=== PATIENT | female | born 1975 | race Caucasian/White ===

== ENCOUNTER 2017-08-24 20:23 | Emergency (ER) | payer MEDICARE, OTHER ==
[~2017-08-24] VITALS: Ht 165.1 cm; Wt 99.5 kg
[~2017-08-24 20:23] MED LIST: ESCI10TA PO; RISPERDAL PO
[2017-08-24] MEDS ORDERED: TraMADol HCL 50 MG TABLET PO ONE (21:00)
[2017-08-24] MEDS ORDERED: CIPROFLOXACIN HCL 250 MG TABLET PO ONE (21:00)
[2017-08-24 21:27] VITALS: BP 133/80
== END 2017-08-24 21:35 | disposition home or self-care (01) ==
LOC: EMS 20:24
DX: S71.131A Puncture wound without foreign body, right thigh, initial encounter (principal); K03.1 Abrasion of teeth; F17.210 Nicotine dependence, cigarettes, uncomplicated; W54.0XXA Bitten by dog, initial encounter; Y93.01 Activity, walking, marching and hiking; Y92.830 Public park as the place of occurrence of the external cause; Y99.8 Other external cause status
CPT/HCPCS: 99283

== ENCOUNTER 2023-08-15 06:53 | Emergency (ER) | payer MEDICARE, OTHER ==
[~2023-08-15] VITALS: Ht 165.1 cm; Wt 77.3 kg
[~2023-08-15 06:53] MED LIST changes: +ESCI-8 PO; -ESCI10TA PO
[2023-08-15 07:01] VITALS: TEMP 98.4
[2023-08-15] MEDS ORDERED: RISP3TAB35 PO (07:04)
[2023-08-15] MEDS ORDERED: RALT400T PO (07:04)
[2023-08-15] MEDS ORDERED: EMTR1TAB23 PO (07:04)
[2023-08-15] MEDS ORDERED: ESCI20TA37 PO (07:04)
[2023-08-15 07:39] LABS: BASOPHILS % (AUTO) 0.1 % (0.0-2.0); EOSINOPHILS % (AUTO) 0.4 % (1.0-6.0); HEMATOCRIT 34.4 % (36-46); HEMOGLOBIN 11.3 g/dL (12.0-16.0); LYMPHOCYTES % (AUTO) 7.8 % (22.0-44.0); MEAN CORPUSCULAR HEMOGLOBIN 28.4 pg (26.0-34.0); MEAN CORPUSCULAR HGB CONC 32.9 G/dL (31.0-37.0); MEAN CORPUSCULAR VOLUME 86 fL (80-100); MONOCYTES # (AUTO) 0.7 K/uL (0.1-1.0); MONOCYTES % (AUTO) 5.7 % (2.0-9.0); PLATELET COUNT (AUTO) 274 K/uL (150-450); RED BLOOD CELL COUNT(AUTO) 3.98 MIL/uL (4.00-5.20); RED CELL DISTRIBUTION WIDTH 14.3 % (11.5-14.5); WHITE BLOOD COUNT (AUTO) 12.8 K/uL (4.5-11.0)
[2023-08-15] MEDS ORDERED: IOHEXOL 350 MG/ML 100 ML VIAL ONE (07:49)
[2023-08-15] MEDS ORDERED: SODIUM CHLORIDE 0.9% 100 ML ONE (07:49)
[2023-08-15] MEDS: SODIUM CHLORIDE 0.9% 1,000 ML IV ONE (07:52)
[2023-08-15] MEDS: MORPHINE SULFATE 2 MG/ML SYRINGE IVP ONE (07:53)
[2023-08-15] MEDS: FAMOTIDINE 20 MG/2 ML VIAL IVP ONE (07:53)
[2023-08-15] MEDS: ACETAMINOPHEN 500 MG TABLET PO ONE (07:53)
[2023-08-15 07:57] LABS: ANION GAP 8 mmol/L (8-16); CARBON DIOXIDE 27 mmol/L (22-29); CHLORIDE 103 mmol/L (98-107); CREATININE 0.75 mg/dL (0.60-1.30); GLOMERULAR FILTR. RATE CALC > 60 mL/min (>60); GLUCOSE,RANDOM 105 mg/dL (70-110); POTASSIUM 4.1 mmol/L (3.5-5.1); SODIUM SERUM 138 mmol/L (136-145); UREA NITROGEN, BLOOD 10 mg/dL (7-18)
[2023-08-15 08:01] LABS: ALANINE AMINOTRANSFERASE 53 U/L (12-78); ALBUMIN 3.5 g/dL (3.4-5.0); ALKALINE PHOSPHATASE 167 U/L (46-116); ASPARTATE AMINOTRANSFERASE 33 U/L (15-37); BILIRUBIN,TOTAL 0.7 mg/dL (0.1-1.0); LIPASE 35 U/L (16-77); TOTAL PROTEIN, SERUM 8.9 g/dL (6.4-8.2)
[2023-08-15 08:52] LABS: APPEARANCE,URINE CLEAR (CLEAR); BILIRUBIN,URINE NEGATIVE (NEGATIVE); COLOR,URINE LIGHT YELLOW (YELLOW); GLUCOSE, URINE (UA) NEGATIVE (NEGATIVE); KETONES,URINE NEGATIVE (NEGATIVE); LEUKOCYTE ESTERASE ,URINE NEGATIVE (NEGATIVE); NITRATE,URINE NEGATIVE (NEGATIVE); OCCULT BLOOD,URINE TRACE (NEGATIVE); PROTEIN,URINE NEGATIVE (NEGATIVE); SPECIFIC GRAVITIY, URINE 1.026 (1.003-1.030); UROBILINOGEN,URINE <=1.0 mg/dL (<=1.0)
[2023-08-15] MEDS: AMOX TR/POT CLAV 875 MG/125 MG TABLET PO ONE (09:03)
[2023-08-15 09:04] LABS: BACTERIA,URINE None Seen /HPF (None Seen); RBC,URINE 0-2 /HPF (0-2); SQUAMOUS EPITHELIAL CELL,UR Rare /LPF (None Seen); WBC,URINE None Seen /HPF (0-5)
[2023-08-15] MEDS ORDERED: AMOX1TAB16 PO (11:04)
[2023-08-15] MEDS ORDERED: ACET-3385 PO (11:04)
[2023-08-15 11:15] VITALS: BP 120/96; PULSE 90; RESP 16
== END 2023-08-15 11:27 | disposition home or self-care (01) ==
LOC: EMS 06:53
DX: K57.92 Diverticulitis of intestine, part unspecified, without perforation or abscess without bleeding (principal); F41.9 Anxiety disorder, unspecified; F32.A Depression, unspecified; F17.210 Nicotine dependence, cigarettes, uncomplicated; Z91.018 Allergy to other foods
CPT/HCPCS: 99285; 74177; 96374; 76830; 76856; 96361; 96375; 80053; 81001; 82271; 83690; 84703; 85025; 36415; J3490; J2270; Q9967; J7030; J7050